=== PATIENT | male | born 1965 | race Native Hawaiian/Other Pacific Islander ===

== ENCOUNTER → 2019-11-21 | Outpatient (CLI) | payer OTHER | END | disposition home or self-care (01) | LOC: RADPV 08:21 | PROVIDERS: ATTEND Legal Medicine | DX: I08.1 Rheumatic disorders of both mitral and tricuspid valves (principal); I73.9 Peripheral vascular disease, unspecified | CPT/HCPCS: 93306; 93925; 93970 ==